=== PATIENT | female | born 1955 | race African-American/Black ===

== ENCOUNTER 2020-06-02 06:31 | Day surgery (SDC) | payer SELFPAY ==
[~2020-06-02 06:31] MED LIST: Lactated Ringers 1,000 ML IV SCH
[2020-06-02] MEDS ORDERED: Propofol 200 MG/20 ML SDV ONE (06:52)
[2020-06-02] MEDS ORDERED: fentaNYL 100 MCG/2 ML SDV ONE (06:52)
--- NOTE | 2020-06-02 07:24 | PCM.PREANE ---
Preanesthetic Assessment - Anesthesia/Transfusion/Family Hx Anesthesia History: Prior Anesthesia Without Reaction Family History of Anesthesia Reaction: No Transfusion History: No Prior Transfusion(s) - Review of Systems General: No Symptoms Pulmonary: No Symptoms Cardiovascular: No Symptoms Gastrointestinal: No Symptoms Neurological: No Symptoms Other: Reports: None - Physical Assessment NPO Status Date: 06/02/20 NPO Status Time: 00:01 Vital Signs: Last Vital Signs Temp 97.2 F 06/02/20 06:35 Pulse 85 06/02/20 06:35 Resp 15 06/02/20 06:35 BP 146/86 H 06/02/20 06:35 Pulse Ox 99 06/02/20 06:35 Height: 5 ft 6 in Weight: 175 lb ASA Class: 3 Mental Status: Alert & Oriented x3 Airway Class: Mallampati = 2 Dentition: Reports: Normal Dentition, Dentures ROM/Head Extension: Limited/Partial Lungs: Clear to Auscultation, Normal Respiratory Effort Cardiovascular: Regular Rate, Regular Rhythm - Allergies Allergies/Adverse Reactions: Allergies Allergy/AdvReac Type Severity Reaction Status Date / Time Penicillins Allergy Rash Verified 05/30/20 12:43 - Anesthesia Plan Pre-Op Medication Ordered: None - Acknowledgements Anesthesia Type Planned: General Anesthesia Pt an Appropriate Candidate for the Planned Anesthesia: Yes Alternatives and Risks of Anesthesia Discussed w Pt/Guardian: Yes Pt/Guardian Understands and Agrees with Anesthesia Plan: Yes Additional Comments: npo after mn IDDM glu 95 this morning htn no cv problems bmi 29 par no questions dentures upper and lower PreAnesthesia Questionnaire HEENT History: Reports: Other (See Below) Other HEENT History: wears glasses, has dentures Cardiovascular History: Reports: Hypertension Respiratory History: Reports: None Gastrointestinal History: Reports: Cholelithiasis, Other (See Below) Other Gastrointestinal History: intermittend epigastric pain & RUQ pain Genitourinary History: Reports: None 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: Musculoskeletal History: Reports: None Neurological History: Reports: None Psychiatric History: Reports: None Endocrine/Metabolic History: Reports: Diabetes, Type II Hematologic History: Reports: None Immunologic History: Reports: None Oncologic (Cancer) History: Reports: None Dermatologic History: Reports: None - Past Surgical History Head Surgeries/Procedures: Reports: None HEENT Surgical History: Reports: None Cardiovascular Surgical History: Reports: None Respiratory Surgical History: Reports: None GI Surgical History: Reports: None Female Surgical History: Reports: Breast Biopsy, Hysterectomy Endocrine Surgical History: Reports: None Neurological Surgical History: Reports: None Musculoskeletal Surgical History: Reports: None Oncologic Surgical History: Reports: None Dermatological Surgical History: Reports: None - SUBSTANCE USE Tobacco Use Status *Q: Never Tobacco User Recreational Drug Use History: No - HOME MEDS Home Medications: Home Meds Aspirin [Adult Aspirin Regimen] 81 mg PO DAILY 05/30/20 [History] Clotrimazole [Clotrimazole 1%] 1 applic TOP ASDIRECTED PRN 05/30/20 [History] Gabapentin [Neurontin] 800 mg PO TID PRN 05/30/20 [History] Insulin Degludec [Tresiba] 1 injection SUBCUT DAILY 05/30/20 [History] Multivitamin 1 tab PO DAILY 05/30/20 [History] NIFEdipine [Nifedipine] 20 mg PO TID 05/30/20 [History] hydroCHLOROthiazide [Hydrochlorothiazide] 25 mg PO DAILY PRN 05/30/20 [History] sitaGLIPtin Phos/Metformin HCl [Janumet Xr 50-1,000 mg Tablet] 1 tab PO BIDMEALS 05/30/20 [History] - CURRENT (IN HOUSE) MEDS Current Meds: Current Medications Lactated Ringer's (Ringers, Lactated) 1,000 mls @ 125 mls/hr IV ASDIRECTED ALLISON Last Admin: 06/02/20 06:50 Dose: 125 mls/hr Documented by: Discontinued Medications Fentanyl (Fentanyl 100 Mcg/2 Ml Sdv) Confirm Administered Dose 100 mcg .ROUTE .STK-MED ONE Stop: 06/02/20 06:53 Lidocaine HCl (Lidocaine 1% 5 Ml Sdv) Confirm Administered Dose 5 ml .ROUTE .STK-MED ONE Stop: 06/02/20 06:55 Propofol (Propofol 200 Mg/20 Ml Sdv) Confirm Administered Dose 200 mg .ROUTE .STK-MED ONE Stop: 06/02/20 06:53
--- NOTE | 2020-06-02 09:14 | PCM.OPNOTE ---
- General Post-Op/Procedure Note Date of Surgery/Procedure: 06/02/20 Operative Procedure(s): Esophagogastroduodenoscopy with gastric and esophageal biopsy Pre Op Diagnosis: Epigastric and right upper quadrant pain Post-Op Diagnosis: Chronic gastritis and esophagitis. Small hiatal hernia. Anesthesia Technique: MAC (ASA III) Primary Surgeon: Jairo Lynne Sandwich Maker: Ashtyn Conklin Condition: Good Free Text/Narrative:: DICTATION [id number] CPT CODE 01495
[2020-06-02] MEDS ORDERED: Lactated Ringers 1,000 ML IV SCH (09:15)
--- NOTE | 2020-06-02 10:16 | PCM.POSTAN ---
POST ANESTHESIA ASSESSMENT - MENTAL STATUS Mental Status: Alert (no anesthjetic problems), Oriented (no anesthetic proble ms) - VITAL SIGNS Vital Signs: Last Vital Signs Temp 96.1 F L 06/02/20 09:30 Pulse 83 06/02/20 09:30 Resp 15 06/02/20 09:30 BP 163/81 H 06/02/20 09:30 Pulse Ox 94 L 06/02/20 09:30 - RESPIRATORY Respiratory Status: Respiratory Rate WNL, Airway Patent, O2 Saturation Stable - CARDIOVASCULAR CV Status: Pulse Rate WNL, Blood Pressure Stable - GASTROINTESTINAL GI Status: No Symptoms - POST OP HYDRATION Hydration Status: Adequate & Stable
--- NOTE | 2020-06-02 10:17 | PCM48HPAN ---
Post Anesthesia Note - EVALUATION WITHIN 48HRS OF ANESTHETIC Vital Signs in Normal Range: Yes Patient Participated in Evaluation: Yes Respiratory Function Stable: Yes Airway Patent: Yes Cardiovascular Function Stable: Yes Hydration Status Stable: Yes Pain Control Satisfactory: Yes Nausea and Vomiting Control Satisfactory: Yes Mental Status Recovered: Yes Vital Signs: Last Vital Signs Temp 96.1 F L 06/02/20 09:30 Pulse 83 06/02/20 09:30 Resp 15 06/02/20 09:30 BP 163/81 H 06/02/20 09:30 Pulse Ox 94 L 06/02/20 09:30
--- NOTE | 2020-06-02 14:37 | OR ---
SURGEON: Jairo Lynne M.D. DATE OF PROCEDURE: 06/02/2020 OPERATION PERFORMED: Esophagogastroduodenoscopy with gastric and esophageal biopsies. PRIMARY SURGEON: Jairo Lynne M.D. ENGINEER SOILS: esol teacher assistant: ANUPAM Howard student. ANESTHESIA: MAC. ASA CLASSIFICATION: III. PREOPERATIVE DIAGNOSIS: Epigastric and right upper quadrant pain. POSTOPERATIVE DIAGNOSES: 1. [id number] chronic gastritis. 2. Distal esophagitis. 3. Small hiatal hernia. DESCRIPTION OF PROCEDURE: The patient was taken to the endoscopy room, positioned on the endoscopy table in the supine position. Time-out was called for appropriate identification of patient and procedure. Monitored anesthesia care was provided. Bite block was placed between the patient's teeth. The gastroscope was inserted through the bite block into the oropharynx and advanced without difficulty through the esophagus and stomach into the duodenum where examination was carried out in a retrograde fashion. The duodenum showed no acute inflammatory changes or ulcerations. The stomach did show [id number] gastritis. Antral biopsies were obtained to look for the presence of Helicobacter pylori. The gastroscope was then retroflexed to visualize the proximal stomach. No acute ulcerations were noted. There was a small hiatal hernia noted from below. No polyps were encountered. The greater and lesser curvatures were clear other than showing a mild gastritis. The gastroscope was then straightened and slowly withdrawn aspirating the stomach as the scope was withdrawn. GE junction was well defined but does show some mild inflammatory changes. No acute ulcerations were noted. The esophagus demonstrated good contractility. No mid or proximal lesions were identified. The vocal cords were briefly visualized as the scope was withdrawn. No vocal cord lesions were identified, and the vocal cords move symmetrically. The gastroscope was then removed with the patient having tolerated the procedure well. She was subsequently taken to recovery room in stable condition. IMAN / SARITA /[id number]
== END 2020-06-02 10:05 | disposition home or self-care (01) ==
LOC: MW.SDS 06:31
PROVIDERS: ATTEND Surgery
DX: K29.50 Unspecified chronic gastritis without bleeding (principal); K44.9 Diaphragmatic hernia without obstruction or gangrene; K20.90 Esophagitis, unspecified without bleeding; E11.9 Type 2 diabetes mellitus without complications; K80.20 Calculus of gallbladder without cholecystitis without obstruction; I10 Essential (primary) hypertension; Z88.0 Allergy status to penicillin; Z79.82 Long term (current) use of aspirin; Z79.899 Other long term (current) drug therapy; Z79.4 Long term (current) use of insulin; Z98.890 Other specified postprocedural states
CPT/HCPCS: 43239; 88305; 88312; J2704; J3010; J7120; 00731

== ENCOUNTER 2020-06-26 08:02 | Day surgery (SDC) | payer SELFPAY ==
[~2020-06-26 08:02] MED LIST changes: +cefOXitin 2 GM in Premix Bag 1 BAG IV ONE
--- NOTE | 2020-06-26 08:49 | PCM.PREANE ---
Preanesthetic Assessment - Anesthesia/Transfusion/Family Hx Anesthesia History: Prior Anesthesia Without Reaction Family History of Anesthesia Reaction: No Transfusion History: No Prior Transfusion(s) - Review of Systems General: No Symptoms Pulmonary: No Symptoms Cardiovascular: No Symptoms Gastrointestinal: No Symptoms Neurological: No Symptoms Other: Reports: None - Physical Assessment NPO Status Date: 06/26/20 NPO Status Time: 00:01 Height: 5 ft 6 in Weight: 179 lb ASA Class: 3 Mental Status: Alert & Oriented x3 Airway Class: Mallampati = 2 Dentition: Reports: Normal Dentition, Dentures ROM/Head Extension: Limited/Partial Lungs: Clear to Auscultation, Normal Respiratory Effort Cardiovascular: Regular Rate, Regular Rhythm - Allergies Allergies/Adverse Reactions: Allergies Allergy/AdvReac Type Severity Reaction Status Date / Time Penicillins Allergy Rash Verified 06/20/20 11:55 - Anesthesia Plan Pre-Op Medication Ordered: None - Acknowledgements Anesthesia Type Planned: General Anesthesia Pt an Appropriate Candidate for the Planned Anesthesia: Yes Alternatives and Risks of Anesthesia Discussed w Pt/Guardian: Yes Pt/Guardian Understands and Agrees with Anesthesia Plan: Yes Additional Comments: npo after mn IDDM glu 104 htn no cv problems tob none etoh none bmi 29 full upper lower dentures Pt has a sharp, pleuritic chest pain on occasion that is tender to palpitation just to L of mid sternum par no questions PreAnesthesia Questionnaire HEENT History: Reports: Other (See Below) Other HEENT History: wears glasses, has top and bottom dentures Cardiovascular History: Reports: Hypertension Respiratory History: Reports: None Gastrointestinal History: Reports: Cholelithiasis, Other (See Below) Other Gastrointestinal History: intermittend epigastric pain & RUQ pain Genitourinary History: Reports: None 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: Musculoskeletal History: Reports: None Neurological History: Reports: None Psychiatric History: Reports: None Endocrine/Metabolic History: Reports: Diabetes, Type II Hematologic History: Reports: None Immunologic History: Reports: None Oncologic (Cancer) History: Reports: None Dermatologic History: Reports: None - Past Surgical History Head Surgeries/Procedures: Reports: None HEENT Surgical History: Reports: None Cardiovascular Surgical History: Reports: None Respiratory Surgical History: Reports: None GI Surgical History: Reports: EGD Female Surgical History: Reports: Breast Biopsy, Hysterectomy Endocrine Surgical History: Reports: None Neurological Surgical History: Reports: None Musculoskeletal Surgical History: Reports: None Oncologic Surgical History: Reports: None Dermatological Surgical History: Reports: None - SUBSTANCE USE Tobacco Use Status *Q: Never Tobacco User - HOME MEDS Home Medications: Home Meds Aspirin [Adult Aspirin Regimen] 81 mg PO DAILY 05/30/20 [History] Clotrimazole [Clotrimazole 1%] 1 applic TOP ASDIRECTED PRN 05/30/20 [History] Gabapentin [Neurontin] 800 mg PO TID PRN 05/30/20 [History] Insulin Degludec [Tresiba] 25 units SUBCUT DAILY 05/30/20 [History] Multivitamin 1 tab PO DAILY 05/30/20 [History] NIFEdipine [Nifedipine] 20 mg PO TID 05/30/20 [History] hydroCHLOROthiazide [Hydrochlorothiazide] 25 mg PO DAILY PRN 05/30/20 [History] sitaGLIPtin Phos/Metformin HCl [Janumet Xr 50-1,000 mg Tablet] 1 tab PO BIDMEALS 05/30/20 [History] Rosuvastatin Calcium 10 mg PO DAILY 06/20/20 [History] - CURRENT (IN HOUSE) MEDS Current Meds: Current Medications Lactated Ringer's (Ringers, Lactated) 1,000 mls @ 125 mls/hr IV ASDIRECTED ALLISON Discontinued Medications Cefoxitin Sodium 2 gm/ Premix 50 mls @ 100 mls/hr IV ONETIME ONE Stop: 06/26/20 07:29
[2020-06-26] MEDS ORDERED: Midazolam 1 MG/ML 2 ML SDV ONE (09:09)
[2020-06-26] MEDS ORDERED: Propofol 200 MG/20 ML SDV ONE (09:09)
[2020-06-26] MEDS ORDERED: Lidocaine 2% 5 ML SDV ONE (09:10)
[2020-06-26] MEDS ORDERED: Ondansetron 4 MG/2 ML SDV ONE ×2 (09:10→12:26)
[2020-06-26] MEDS ORDERED: fentaNYL 250 MCG/5 ML SDV ONE (09:10)
[2020-06-26] MEDS ORDERED: Rocuronium Bromide 50 MG/5 ML Syringe ONE (09:10)
[2020-06-26] MEDS ORDERED: Dexamethasone 4 MG/ML 5 ML MDV ONE (09:10)
[2020-06-26] MEDS ORDERED: Sodium Chloride 0.9% 20 ML ONE (09:18)
[2020-06-26] MEDS ORDERED: cefOXitin 1 GM Vial ONE (09:18)
[2020-06-26] MEDS ORDERED: ceFAZolin 1 GM Vial ONE (10:38)
[2020-06-26] MEDS ORDERED: Bupivacaine 0.5% 30 ML SDV ONE (10:38)
[2020-06-26] MEDS ORDERED: Sugammadex Sodium 200 MG/2 ML VIAL ONE (12:26)
[2020-06-26] MEDS ORDERED: Morphine 10 MG/ML Syringe IVPUSH PRN ×2 (13:44→14:14)
[2020-06-26] MEDS ORDERED: Acetaminophen/HYDROcodone 325-5 MG Tab PO PRN (13:44)
[2020-06-26] MEDS ORDERED: Lactated Ringers 1,000 ML IV SCH (13:45)
--- NOTE | 2020-06-26 13:46 | PCM.OPNOTE ---
- General Post-Op/Procedure Note Date of Surgery/Procedure: 06/26/20 Operative Procedure(s): Laparoscopic cholecystectomy Pre Op Diagnosis: Symptomatic cholelithiasis Post-Op Diagnosis: Same Anesthesia Technique: General ET Tube (ASA III) Primary Surgeon: Jairo Lynne Fluid Replacement, Intraop: 1,500 Output, Urine Amount: 150 EBL in mLs: 50 Condition: Good Free Text/Narrative:: DICTATION [id number] CPT CODE 71181
[2020-06-26] MEDS ORDERED: Albuterol 0.083% 2.5 MG/3 ML Neb Soln NEB PRN (14:14)
[2020-06-26] MEDS ORDERED: Ondansetron 4 MG/2 ML SDV IVPUSH PRN (14:14)
[2020-06-26] MEDS ORDERED: Naloxone 0.4 MG/ML Syringe IVPUSH PRN (14:14)
[2020-06-26] MEDS ORDERED: Acetaminophen 1,000 MG in Premix Bag 1 BAG IV PRN (14:14)
[2020-06-26] MEDS ORDERED: Metoclopramide 10 MG/2 ML SDV IVPUSH PRN (14:14)
[2020-06-26] MEDS ORDERED: HYDROmorphone 2 MG/ML Syringe IVPUSH PRN (14:14)
[2020-06-26] MEDS: fentaNYL 100 MCG/2 ML SDV IVPUSH PRN ×2 (14:18→14:23)
--- NOTE | 2020-06-26 15:53 | OR ---
SURGEON: Jairo Lynne M.D. DATE OF PROCEDURE: 06/26/2020 OPERATION PERFORMED: Laparoscopic cholecystectomy. PRIMARY SURGEON: Jairo Lynne M.D. ANESTHESIA: General endotracheal. ASA CLASSIFICATION: III. PREOPERATIVE DIAGNOSIS: Symptomatic cholelithiasis. POSTOPERATIVE DIAGNOSIS: Symptomatic cholelithiasis. ESTIMATED BLOOD LOSS: 50 mL. INTRAOPERATIVE FLUID REPLACEMENT: 1500 mL of crystalloid. INTRAOPERATIVE URINARY OUTPUT: 150 mL. DESCRIPTION OF PROCEDURE: The patient was taken to the operating room and placed on the operating table in the supine position. Time-out was called for appropriate identification of the patient and procedure. Thigh-high TEDs and sequential compression boots were placed. Following satisfactory attainment of general endotracheal anesthesia, a Driver catheter was placed in the patient's urinary bladder. The abdomen was prepped with DuraPrep solution and sterile drapes were applied. The patient did have a lower midline incision. Our initial attempt was through that incision. 0.5% Marcaine solution was injected into the incision, and the incision was then made and deepened through the subcutaneous tissue obtaining hemostasis with the use of electrocautery. The Veress needle would not pass easily, and there was concern that there maybe adhesions under this. Therefore, our attention was turned to the right anterior axillary incision. This incision was infiltrated with 0.5% Marcaine. Skin incision was made. The Veress needle was able to be introduced into the peritoneal cavity. Saline drop test was positive. Carbon dioxide was established with the release set at 13 cm of water. Once a satisfactory pneumoperitoneum was established, we were able to position a 5 mm port and camera through that incision. Visualization of the midline did reveal few filmy adhesions to the incision. Nevertheless, I was able to insert a 5 mm trocar just to the right of the midline through the incision. Again, under camera vision and now with the camera in the infraumbilical incision, 5 mm midclavicular and 12 mm anterior axillary port incisions were made. Each incision had preemptively been infiltrated with 0.5% Marcaine solution. The gallbladder was grasped, and the cholecystohepatic triangle was dissected free. The cystic duct was quite short, and care was taken to be right adjacent to the gallbladder. Good critical view was obtained encircling the cystic duct and visualizing both sides of it. The cystic duct was serially hemoclipped and divided with laparoscopic Metzenbaum scissors. The cystic artery was then identified, and critical view of the structure also obtained before ligation with hemoclips and division. The gallbladder was then dissected away from its bed using electrocautery. Once the gallbladder was amputated, this was placed in an Endopouch. A small amount of bile was spilled, but no stones were spilled. With the gallbladder now contained within the Endopouch, the right upper quadrant was irrigated with sterile saline solution, and all fluid was aspirated. There did not appear to be any significant bleeding from the liver bed and no bile leak. Surgicel was, however, placed into the bed of the gallbladder. The right hemidiaphragm was then irrigated with 250 mL of saline containing 20 mL of 0.5% Marcaine solution. That fluid was left in place. The patient was now returned to a neutral position. Under camera vision, the 12 mm port and EndoCatch containing gallbladder were removed. Again, under camera vision, the 5 mm midclavicular and anterior axillary ports were removed and finally the infraumbilical camera and port were removed. Wounds were inspected for hemostasis, and small bleeding sites were electrocoagulated. All incisions were closed in 2 layers approximating the subcutaneous tissue with 3-0 Vicryl and the skin with subcuticular 4-0 Monocryl. Incisions were all Steri-Stripped and dressed with sterile Tegaderm pads. Sponge, needle, and instrument counts were all correct. Driver catheter was removed prior to emergence from anesthesia. Following emergence from anesthesia and extubation, the patient was taken to recovery room in stable condition. IMAN / SARITA /[id number]
--- NOTE | 2020-06-26 16:02 | PCM.POSTAN ---
POST ANESTHESIA ASSESSMENT - MENTAL STATUS Mental Status: Alert (no anesthetic problems), Oriented - VITAL SIGNS Vital Signs: Last Vital Signs Temp 97.5 F 06/26/20 14:55 Pulse 83 06/26/20 15:35 Resp 16 06/26/20 15:35 BP 138/82 06/26/20 15:35 Pulse Ox 96 06/26/20 15:35 - RESPIRATORY Respiratory Status: Respiratory Rate WNL, Airway Patent, O2 Saturation Stable - CARDIOVASCULAR CV Status: Pulse Rate WNL, Blood Pressure Stable - GASTROINTESTINAL GI Status: No Symptoms - POST OP HYDRATION Hydration Status: Adequate & Stable
--- NOTE | 2020-06-26 16:08 | PCM48HPAN ---
Post Anesthesia Note - EVALUATION WITHIN 48HRS OF ANESTHETIC Vital Signs in Normal Range: Yes Patient Participated in Evaluation: Yes Respiratory Function Stable: Yes Airway Patent: Yes Cardiovascular Function Stable: Yes Hydration Status Stable: Yes Pain Control Satisfactory: Yes Nausea and Vomiting Control Satisfactory: Yes Mental Status Recovered: Yes Vital Signs: Last Vital Signs Temp 97.5 F 06/26/20 14:55 Pulse 83 06/26/20 15:35 Resp 16 06/26/20 15:35 BP 138/82 06/26/20 15:35 Pulse Ox 96 06/26/20 15:35
== END 2020-06-26 16:02 | disposition home or self-care (01) ==
LOC: MW.SDS 08:02
PROVIDERS: ATTEND Surgery
DX: K80.10 Calculus of gallbladder with chronic cholecystitis without obstruction (principal); E11.9 Type 2 diabetes mellitus without complications; I10 Essential (primary) hypertension; K29.50 Unspecified chronic gastritis without bleeding; Z88.0 Allergy status to penicillin; Z79.82 Long term (current) use of aspirin; Z79.899 Other long term (current) drug therapy
CPT/HCPCS: 47562; 82947; J0131; J0690; J0694; J1100; J2250; J2704; J3010; J3490; J7120; 00790; 88304; J2405